=== PATIENT | female | born 1955 | race Caucasian/White ===

== ENCOUNTER 2018-06-21 05:31 | Inpatient (IN) ==
[2018-06-21] MEDS ORDERED: Metoprolol Tartrate 25 MG Tablet PO ONE (05:57)
[2018-06-21] MEDS ORDERED: Chlorhexidine Gluconate 2% 1 Pack (2 Cloths) TOPICAL ONE (05:57)
[2018-06-21] MEDS ORDERED: Dexamethasone Inj 20 MG/5 ML Vial IV.PUSH PRN (05:58)
[2018-06-21] MEDS ORDERED: Sodium Chlor 0.9% Inj 500 ML IV.SIG SCH (06:00)
[2018-06-21] MEDS ORDERED: Sodium Chlor 0.9% Inj 73.07 ML, Ropivacaine 0.5% PF Inj 24.63 ML, Ketorolac Inj 30 MG, ... P-ARTICULR SCH ×5 (06:01)
[2018-06-21] MEDS ORDERED: Chlorhexidine 4% Topical 120 APPLIC/120 ML Bottle TOPICAL SCH (06:15)
[2018-06-21] MEDS ORDERED: Tranexamic Acid Inj 925 MG in Sodium Chlor 0.9% Inj 100 ML IV.SIG SCH (07:00)
[2018-06-21] MEDS ORDERED: Vancomycin Inj 1,000 MG in Sodium Chlor 0.9% Inj 250 ML IV.SIG SCH (07:00)
[2018-06-21] MEDS ORDERED: ceFAZolin 2 GM Premix Inj 2 GM/50 ML PIGGYBACK IV.SIG SCH (07:00)
[2018-06-21] MEDS ORDERED: Bupivacaine Liposomal PF 1.3% Inj 20 ML Vial ONE (07:21)
[2018-06-21] MEDS ORDERED: fentaNYL Citrate Inj 100 MCG/2 ML Ampul ONE ×2 (07:34→10:46)
[2018-06-21] MEDS ORDERED: Etomidate Inj 20 MG/10 ML Ampul IV.PUSH ONE ×2 (08:05)
[2018-06-21] MEDS ORDERED: Aluminum/Magnesium/Simethacone Susp 30 ML UDC PO PRN (10:13)
[2018-06-21] MEDS ORDERED: Zolpidem Tartrate 5 MG Tablet PO PRN (10:13)
[2018-06-21] MEDS ORDERED: Bisacodyl 10 MG Supp RECTAL PRN (10:13)
[2018-06-21] MEDS ORDERED: Post-op Orders (for Pharmacy) OTHER STA (10:13)
--- NOTE | 2018-06-21 10:16 | P.OP ---
- Preoperative Diagnosis (1) Osteoarthritis of left knee - Postoperative Diagnosis (1) Osteoarthritis of left knee Date of procedure: 06/21/18 Procedure: Left total knee arthroplasty Anesthesia: [facility], [facility] Surgeon: Jenaro Rojas MD Pharmaceutical Process Engineer: NIGHAT Ramos The surgical procedure was assisted by my Advanced Registered Nurse Practitioner. My [employer] presence was necessary throughout this case for the manipulation and positioning of the surgical extremity. My [employer] was assisting me throughout the duration of this procedure. The skill set of an Advance Registered Nurse Practitioner was medically necessary to complete this procedure. During the surgical case, the manager surgical was working at the back table and the Advance Registered Nurse Practitioner was directly assisting me. Operation and Findings: IMPLANTS: DePuy Attune: Patella: size 35. Femur, posterior stabilized size 5. Tibia, rotating platform size 4. Tibial insert, rotating platform, posterior stabilized size 6 mm thickness. ESTIMATED BLOOD LOSS: 100 cc TOURNIQUET TIME: 35 minutes at 250 mmHg pressure. JUSTIFICATION FOR PROCEDURE: The patient has end-stage osteoarthritis to the knee. There is an attached conservative measures pathway form in the chart that describes the nonoperative measures that were undertaken prior to consideration of surgical management. The patient understood the risks and benefits of surgical management. See my office notes for further details PROCEDURE: The patient was brought back to the operative theatre. Adequate anesthesia was obtained. The patient received intravenous vancomycin and Ancef. The lower extremity was prepped and draped in the usual sterile fashion.The leg was exsanguinated, the tourniquet was raised. A standard anterior incision was performed followed by medial parapatellar arthrotomy was performed. End-stage arthritis was identified. Osteotomy of the patella was performed. We drilled holes for the patella. We trialed the patella component. We placed an intramedullary guide into the distal femur. We ultimately resected 11 mm off of the distal femur in 5 degrees of valgus. The remnants of the ACL and PCL were resected. Osteotomy of the proximal tibia was performed, resecting 5 mm off of the medial side. This was done with 3 degrees of posterior slope using an extramedullary guide. The distal end of the guide was placed in the mid aspect of the ankle. The femur was sized, and four chamfer cuts were completed in 3 of external rotation. We then cut the central box in the distal femur to replace the PCL. We resected the remnants of the menisci and removed osteophytes off of the femur and tibia. We then trialed the knee. We punched the tibia for the keel, and then used standard technique to cement in components. Excess cement was removed. We trialed the knee again and the final polyethylene thickness was chosen to provide extension to 0 degrees, and flexion of 140 degrees to gravity. The ligaments were appropriately balanced. Lateral release was necessary to obtain excellent patellofemoral tracking. The tourniquet was released and adequate hemostasis was obtained. An intra- articular injection of a ropivacaine cocktail was injected. The posterior knee was inspected for excess cement, which was removed. The final polyethylene was put into position after thorough irrigation. We then closed deep fascia with a #2 Stratafix followed by skin with 2-0 Vicryl followed by Dermabond dressing. Postop plan is to weight-bear as tolerated. DVT prophylaxis will be performed with SCDs, LAVON hose, early mobilization, and aspirin.
[2018-06-21] MEDS ORDERED: *morphine SULFATE 4 MG/ML PERIprocedure ONLY ONE (10:44)
[2018-06-21] MEDS ORDERED: Morphine Sulfate Inj 2 MG/ML Vial IV.PUSH PRN (10:45)
[2018-06-21] MEDS ORDERED: Morphine Inj 4 MG/ML Vial ONE (10:46)
[2018-06-21] MEDS: Sod Chloride 0.9% Inj 1,000 ML IV.CONT SCH (11:08)
[2018-06-21] MEDS ORDERED: SODIUM CHLOR 0.9% IV.SIG SCH (11:41)
[2018-06-21] MEDS ORDERED: TRANEXAMIC ACID IV.SIG SCH (11:41)
[2018-06-21] MEDS ORDERED: *HYDROmorphone PF Inj 1 MG/ML Ampul PERIprocedural Use ONLY ONE ×2 (11:51→14:17)
[2018-06-21] MEDS ORDERED: *Ondansetron Inj 4 MG/2 ML Vial PERIprocedural Use ONLY ONE (13:46)
[2018-06-21] MEDS: ceFAZolin 1 GM Premix Inj 1 GM/50 ML IV.SIG SCH ×2 (15:00→22:21)
--- NOTE | 2018-06-21 15:25 | P.DCO ---
- Physical Therapy Physical Therapy: Gait training, Transfer training, bed to chair Knee: Total knee Left Lower Extremity Weight Bearing: Weight bearing as tolerated Left Lower Extremity Range of Motion: Active ROM - Nursing Dressing changes: Do not change dressing Additional instructions: First dressing change in the office - Certification Need for Home Health services: I have seen patient Rosaura Vu on 06/21/18. My clinical findings support the need for the requested home health care services because: Need for Home Health Services: Limited ability to care for self, High risk of falls Homebound Certification: I certify that my clinical findings support that this patient is homebound because: Homebound Certification: Post-op weakness, Unsteady gait/balance
[2018-06-21] MEDS: Glimepiride 4 MG Tablet PO SCH (17:07)
[2018-06-21] MEDS: Multivitamin/Minerals Therapeutic Tablet PO SCH (22:21)
[2018-06-21] MEDS: Senna/Docusate Sodium 8.6/50 MG Tablet PO SCH (22:21)
[2018-06-22] MEDS: ceFAZolin 1 GM Premix Inj 1 GM/50 ML IV.SIG SCH (02:38)
[2018-06-22] MEDS: Sod Chloride 0.9% Inj 1,000 ML IV.CONT SCH (05:40)
[2018-06-22 06:35] LABS: Hematocrit 37.4 % (35.0-46.0); Hemoglobin 12.5 gm/dL (11.6-15.3)
--- NOTE | 2018-06-22 07:26 | P.PNOP ---
Subjective Interval history: The patient is resting comfortably in bed with complaints of mild pain to the left knee. The patient does want to go home today with home health. Physical Exam Vital signs: Vital Signs 06/21/18 07:37 06/21/18 10:36 06/21/18 10:45 Temperature 97.9 F Pulse Rate 68 80 75 Respiratory Rate 22 14 Blood Pressure 125/60 134/63 Pulse Oximetry 97 97 92 L 06/21/18 11:00 06/21/18 11:15 06/21/18 11:30 Temperature Pulse Rate 65 62 71 Respiratory Rate 13 13 14 Blood Pressure 117/56 L 116/54 L 132/58 L Pulse Oximetry 93 L 97 95 06/21/18 11:45 06/21/18 12:00 06/21/18 13:00 Temperature Pulse Rate 64 64 63 Respiratory Rate 13 13 14 Blood Pressure 124/60 122/58 L 103/54 L Pulse Oximetry 96 97 96 06/21/18 14:00 06/21/18 15:00 06/21/18 16:00 Temperature 97.7 F 98 F Pulse Rate 63 81 68 Respiratory Rate 17 19 19 Blood Pressure 115/56 L 118/67 111/55 L Pulse Oximetry 96 94 L 95 06/21/18 19:21 06/22/18 00:00 06/22/18 04:24 Temperature 97.6 F 97.7 F 97.6 F Pulse Rate 98 H 60 76 Respiratory Rate 18 19 19 Blood Pressure 141/69 H 129/62 131/67 Pulse Oximetry 97 98 95 Intake & Output 06/21/18 06/22/18 06/22/18 18:59 06:59 18:59 Intake Total 2092.51 / 2.51 1266 / 1266 Output Total 25 / 25 Balance 2067.51 / 2067.51 1266 / 1266 Weight 110.54 kg 110.54 kg Intake: IV 882.51 / 882.51 786 / 786 NS Inj 1,000 ML @ 80 mls/hr IV. 314 / 314 686 / 686 CONT .[id number] [facility] Rx#:[id number] Cyklokapron Inj 926 MG In NS 218.51 / 218.51 Inj 100 ML @ 200 mls/hr IV.SIG ONCE [facility] Rx#:[id number] Vancomycin Inj 1,000 MG In NS 250 / 250 Inj 250 ML @ 250 mls/hr IV.SIG [facility] Rx#:[id number] Ancef 1 GM Premix Inj 1 gm In 50 / 50 100 / 100 50 ml @ 100 mls/hr IV.SIG Q6H [facility] Rx#:[id number] Ancef 2 GM Premix Inj 2 gm In 50 / 50 50 ml @ 100 mls/hr IV.SIG [facility] Rx#:[id number] Oral 360 / 360 480 / 480 Anesthesia Amount 850 / 850 Output: Estimated Blood Loss 25 / 25 Other: # Voids 1 1 Date of Last Bowel Movement 06/20/18 Weight On Admission 92.6 kg Narrative: The patient's dressing is clean, dry, and intact. EHL/TA/G are intact. 2+ pedal pulse. The patient's calf is soft and nontender. Sensation is intact to light touch distally. Results - Labs CBC & Chem 7: 06/22/18 05:35 Laboratory Results - last 24 hr 06/21/18 06/21/18 06/21/18 07:20 15:58 17:07 Hgb Hct POC Glucose 194 H 225 H Blood Type A Positive Blood Type Recheck Required Antibody Screen Negative 06/22/18 05:35 Hgb 12.5 Hct 37.4 POC Glucose Blood Type Blood Type Recheck Antibody Screen - Procedures Left total knee arthroplasty Assessment and Plan - Problem List (1) Status post total knee replacement, left Code(s): Z96.652 - Presence of left artificial knee joint Status: Acute (2) Osteoarthritis of left knee Code(s): M17.12 - Unilateral primary osteoarthritis, left knee Status: Acute - Assessment and Plan POD #1: Left total knee arthroplasty 1. Weightbearing as tolerated on left lower extremity. 2. Aspirin 81 mg twice daily for DVT prophylaxis. 3. Ice as needed for swelling. 4. Stable per ortho for discharge to home health today following her class. 5. The patient will follow up with Dr. Rojas and/or NIGHAT Piña as previously scheduled.
[2018-06-22] MEDS ORDERED: Dexamethasone Inj 20 MG/5 ML Vial IV.PUSH ONE (08:00)
[2018-06-22] MEDS: Glimepiride 4 MG Tablet PO SCH (08:00)
[2018-06-22] MEDS: Multivitamin/Minerals Therapeutic Tablet PO SCH (08:00)
[2018-06-22] MEDS: Senna/Docusate Sodium 8.6/50 MG Tablet PO SCH (08:00)
--- NOTE | 2018-06-22 08:27 | XR ---
EXAM DATE: 06/21/2018 11:19 AM EST AGE/SEX: 62 years / Female INDICATIONS: Post-op surgery, total knee replacement. CLINICAL DATA: This is the patient's initial encounter. Patient reports that signs and symptoms have been present for 1 day and indicates a pain score of 8/10. MEDICAL/SURGICAL HISTORY: None. None. COMPARISON: No prior exams available for comparison. FINDINGS: AP and lateral views of the knee following arthroplasty reveals a prosthesis in anatomic alignment. F racture is not appreciated. CONCLUSION: Status post total knee arthroplasty. Pj Gomez MD FACR Electronically signed by: Pj Gomez MD 06/21/2018 11:22 AM EST
[2018-06-22 08:38] VITALS: RESP 20
[2018-06-22 13:28] VITALS: BP 137/69; PULSE 85; TEMP 98; O2SAT 94
--- NOTE | 2018-06-23 13:03 | P.DS ---
Date of admission: 06/21/18 05:31 Primary care physician: Satnam Farrell DO Attending physician on discharge: Jenaro Rojas Anticipated date of discharge: 06/22/18 Brief History from admission: The patient was admitted to the hospital with severe osteoarthritis of the left knee to have a left total knee arthroplasty. DS: Diagnosis - Discharge Diagnosis (1) Status post total knee replacement, left Status: Acute (2) Osteoarthritis of left knee Status: Acute DS: Summary Hospital Course: The patient was admitted to the hospital for severe osteoarthritis of the left knee to have a left total knee arthroplasty. The patient's surgery went well with no complication. The patient is on a diabetic diet. The patient's DVT prophylaxis includes use of aspirin 81 mg twice daily. The patient is weightbearing as tolerated. The patient was discharged [home with home health] and will follow up in the office with Dr. Rojas and/or NIGHAT Piña as previously scheduled. - Time Spent with Patient Total time spent providing and/or coordinating discharge services: Greater than 30 minutes - Quality: VTE Deep Vein Thrombosis/Pulmonary Embolism Present on Admission: No Exam Vital signs: Intake & Output 06/22/18 06/23/18 06/23/18 18:59 06:59 18:59 Other: Date of Last Bowel Movement 06/21/18 Narrative: The patient's dressing is clean, dry, and intact. EHL/TA/G are intact. 2+ pedal pulse. The patient's calf is soft and nontender. Sensation is intact to light touch distally. Results Procedures completed during hospitalization: Left total knee arthroplasty - Impressions ITS Impressions Knee X-Ray 06/21/18 10:13 CONCLUSION: Status post total knee arthroplasty. Pj Gomez MD FACR Discharge Plan - Discharge Disposition Patient Disposition: W/Home Health Service - Discharge Condition Condition: Stable - Discharge Order Discharge Orders: Discharge Order (Routine); Ordered 06/21/18 Ordered By: Darion Doty - Discharge Details Anticipated Discharge Date: 06/22/18 - Physicians Team Primary Care Provider: Satnam Farrell Attending Provider: Jenaro Rojas Other Providers: [facility] - Rxs /Orders / Referrals /Forms Prescriptions: Continue biotin 1 mg Capsule 1 mg PO DAILY cholecalciferol (vitamin D3) [Vitamin D3] 2,000 unit Capsule 2,000 unit PO DAILY dapagliflozin [Farxiga] 10 mg Tablet 10 mg PO DAILY glimepiride 4 mg Tablet 4 mg PO BID metformin 500 mg Tablet 250 mg PO BID Discontinued vit C-vit [id number] [Ocuvite] [id number]-mg Capsule 1 cap PO DIRECTED Ambulatory Orders / Order Sets / DME: Adjustable Commode 3-in-1 (1 each) (Routine) Location: Determined by Patient Ordered By: Darion Doty CPM - Continuous Passive Motion Machine (1 each) (Routine) Location: Determined by Patient Ordered By: Darion Doty Walker With Front Wheels (1 each) (Routine) Location: Determined by Patient Ordered By: Darion Doty Referrals: Jenaro Rojas MD [Physician] - See Instructions (F/U in the office with Dr. Rojas or Carmelo Doty APRN as previously scheduled. ) Satnam Farrell DO [Primary Care Provider] - See Instructions - Discharge Instructions Patient Printed Instructions: Hydrocodone/Acetaminophen (By mouth), Knee Replacement (DC)
== END 2018-06-22 14:15 | disposition home health service (06) ==
LOC: HSDI 05:31 → N06 16:15
PROVIDERS: ADMIT Orthopaedic Surgery; ATTEND Orthopaedic Surgery